=== PATIENT | female | born 1975 | race Caucasian/White ===

== ENCOUNTER 2025-06-09 23:09 | Emergency (ER) | payer OTHER ==
[~2025-06-09] VITALS: Ht 177.8 cm; Wt 72.6 kg
[~2025-06-09 23:09] MED LIST: AUGMENTIN 875 M1 TAB PO; TRAMADOL HCL50 MG PO; TRIMOX500 MG PO
[2025-06-09] MEDS ORDERED: Buprenorphine Hydrochloride 2 MG TAB SL ONE (23:20)
[2025-06-09] MEDS ORDERED: Ondansetron Hydrochloride 4 MG TAB SL ONE (23:20)
[2025-06-09 23:22] VITALS: BP 123/78
[2025-06-10] MEDS ORDERED: Buprenorphine Hydrochloride 2 MG TAB SL ONE (01:05)
== END 2025-06-10 01:40 | disposition home or self-care (01) ==
LOC: ED 23:09
DX: F11.23 Opioid dependence with withdrawal (principal); R11.2 Nausea with vomiting, unspecified; R19.7 Diarrhea, unspecified; F15.90 Other stimulant use, unspecified, uncomplicated; Z79.899 Other long term (current) drug therapy; Z98.890 Other specified postprocedural states

== ENCOUNTER 2025-06-16 21:19 | Emergency (ER) | payer OTHER ==
[~2025-06-16] VITALS: Ht 177.8 cm; Wt 72.6 kg
[2025-06-16] MEDS ORDERED: TRAZODONE50 MG PO (21:24)
[2025-06-16 22:13] LABS: BUN 11 mg/dl (9-23)
[2025-06-16 22:26] LABS: BILIRUBIN Negative (Negative); BLOOD 1+ (Negative); CLARITY Turbid (Clear); COLOR Yellow (Yellow); KETONE Negative (Negative); LEUKO ESTERASE 3+ (Negative); NITRITE Negative (Negative); PH 6.5 (4.5-8.0); SPECIFIC GRAVITY 1.020 (1.001-1.030); UROBILINOGEN 1.0 E.U./dl (0.0-1.0)
[2025-06-16 22:38] LABS: EPITHELIAL CELLS 31-40
[2025-06-16 22:39] LABS: BACTERIA 2+; RBC 16-20 rbc/hpf (0-2); WBC 21-30 wbc/hpf (0-5)
[2025-06-16 22:50] LABS: BASO # 0.1 10*3/uL (0.0-0.1); BASO % 1.1 % (0.0-1.0); EOS # 0.1 10*3/uL (0.0-0.4); EOS % 2.3 % (1.0-4.0); MEAN CELL VOLUME 62.2 fl (81.0-99.0); MEAN CORPUSCULAR HGB 17.1 pg (27.0-31.0); MEAN PLATELET VOLUME 10.3 fl (9.6-12.3); MONO # 0.5 10*3/uL (0.1-1.0); MONO % 11.0 % (3.0-9.0); NEUT # 1.6 10*3/uL (2.3-7.9); NEUT % 35.9 % (47.0-73.0); NUCLEATED RED BLOOD CELL 0.0 % (0.0-0.0); NUCLEATED RED BLOOD CELL 0.0 10*3/uL (0.0-0.0); PLATELET COUNT AUTOMATED 223 10*3/uL (130-400); RED CELL DISTRI WIDTH 18.8 % (0-14.5)
[2025-06-16] MEDS ORDERED: BUMETANIDE 1 MG/4 ML VIAL IM ONE (23:05)
[2025-06-16] MEDS ORDERED: Ciprofloxacin Hydrochloride 500 MG TAB PO ONE (23:05)
[2025-06-16 23:21] VITALS: BP 107/55
== END 2025-06-17 00:15 ==
LOC: ED 21:19
PROVIDERS: Internal Medicine
DX: R60.0 Localized edema (principal); D50.9 Iron deficiency anemia, unspecified; N39.0 Urinary tract infection, site not specified

== ENCOUNTER 2025-06-20 20:10 | Emergency (ER) | payer OTHER ==
[~2025-06-20] VITALS: Ht 162.5 cm; Wt 72.6 kg
[~2025-06-20 20:10] MED LIST changes: +TRAZODONE50 MG PO
[2025-06-20 20:24] VITALS: BP 127/65
[2025-06-20 20:44] LABS: MEAN CELL VOLUME 62.6 fl (81.0-99.0); MEAN CORPUSCULAR HGB 17.2 pg (27.0-31.0); NUCLEATED RED BLOOD CELL 0.0 % (0.0-0.0); NUCLEATED RED BLOOD CELL 0.0 10*3/uL (0.0-0.0); PLATELET COUNT AUTOMATED 258 10*3/uL (130-400); RED CELL DISTRI WIDTH 19.7 % (0-14.5)
[2025-06-20 21:04] LABS: BUN 11 mg/dl (9-23)
[2025-06-20 21:07] LABS: MANUAL DIFF REFLEX YES
[2025-06-20 21:11] LABS: PLATELET SUFFICIENCY NORMAL (NORMAL)
[2025-06-20] MEDS ORDERED: BUMETANIDE 2.5 MG/10 ML VIAL IM ONE (21:30)
[2025-06-20] MEDS ORDERED: BUMETANIDE 1 MG TAB PO ONE (21:40)
== END 2025-06-20 21:22 ==
LOC: ED 20:10
PROVIDERS: Internal Medicine
DX: R60.0 Localized edema (principal); D50.9 Iron deficiency anemia, unspecified; Z98.890 Other specified postprocedural states